=== PATIENT | male | born 1985 | race Hispanic/Latino ===

== ENCOUNTER 2019-06-07 14:24 | Emergency (ER) | payer SELFPAY ==
--- NOTE | 2019-06-07 15:42 | RAD ---
RIGHT HAND 3 VIEWS: HISTORY: Trauma. FINDINGS: Carpals are normally aligned. The metacarpals and phalanges appear intact. IMPRESSION: No acute abnormality. POS: [facility]
== END 2019-06-07 15:35 | disposition home or self-care (01) ==
LOC: EDBD 14:24 → ERS 14:24
DX: S60.221A Contusion of right hand, initial encounter (principal); F17.210 Nicotine dependence, cigarettes, uncomplicated; W23.0XXA Caught, crushed, jammed, or pinched between moving objects, initial encounter